=== PATIENT | female | born 1975 | race Two or more races ===

== ENCOUNTER 2024-05-31 10:04 | Emergency (ER) | payer MEDICAID, SELFPAY ==
[2024-05-31 10:32] VITALS: BP 139/79; PULSE 80; RESP 18; TEMP 37.1; O2SAT 98; BMI 28.9
--- NOTE | 2024-05-31 10:39 | XR_ITS ---
Examination: PA lateral chest 2 views TECHNIQUE: Upright PA lateral chest 2 views Exam date and time: May 31, 2024 1045 hours INDICATIONS: Chest pain coughing beginning 3 weeks ago. FINDINGS: Normal heart size. Lungs are clear. The osseous structures are intact IMPRESSION: No active disease
--- NOTE | 2024-05-31 11:42 | EDNOTE_ITS ---
ED Back Injury Pain RME/HPI General Chief Complaint: Back Pain/Injury Stated Complaint: WANTS LUNGS CHECKED Time Seen by Provider: 05/31/24 10:31 Source: patient Arrival date/time: 05/31/24 10:04 This is a 48-year-old female presents to the emergency department with complaints of cough, congestion, currently on azithromycin, allergy medications, currently treatment for bronchitis. She states she had a telephonic visit and was diagnosed with bronchitis. She reports she feels safer if she gets an x-ray and lung exam. Denies fever, chills shortness of breath. Mode of arrival: ambulatory Related Data Previous Rx's ?Medication ?Instructions ?Recorded omeprazole 20 mg capsule,delayed 20 mg PO QDAY #30 cap s 12/09/20 release famotidine 40 mg tablet (Pepcid) 40 mg PO Q6H #60 tabs 09/03/23 cetirizine 10 mg tablet 10 mg PO QDAY PRN allergy sy mptoms 05/31/24 #20 tabs Allergies Allergy/AdvReac Type Severity Reaction Status Date / Time No Known Allergies Allergy Verified 05/31/24 11:02 Review of Systems Review of Systems Systems Reviewed: All systems reviewed, normal except as documented Narrative Review of Systems: Gen: No fever, no chills, no weight loss EYES: No discharge, no visual changes, no pain HEENT: No ear pain, no congestion, no sore throat PULM: No shortness of breath, no cough, no congestion CV: No chest pain, no dyspnea on exertion, no palpitations GI: No nausea, no vomiting, no diarrhea, no pain, no constipation : No frequency, no urgency,? no dysuria Musc/skel: No joint pain, no back pain Skin: No rash? Psyc: No hallucinations, no depression Heme/Lymph: No easy bleeding or bruising tendencies Neuro: No weakness, no headache ED Exam Narrative Physical exam: General: Sittiing in Exam table in no acute distress, answering questions appropriately HENT: normocephalic, atraumatic, EOMI, PERRLA, moist mucous membranes Chest: chest wall is nontender Cardiac: regular rate and rhythm, normal S1 and S2, no murmurs, rubs, or gallops, capillary refill ?2 seconds Pulmonary: clear to auscultation bilaterally, no wheezing, crackles, or rhonchi Abdominal: active bowel sounds, soft, nontender, nondistended Neuro: A&OX3, CN II-XII intact, sensation grossly intact bilaterally in UE and LE. Skin: no rashes, no ecchymosis Ext: no lower extremity edema Course Quality Measures none Orders Category Date Time Status XR chest 2V Stat Exams 05/31/24 10:39 Completed Vital Signs Vital signs: Vital Signs Temperature 98.8 F 05/31/24 10:32 Pulse Rate 80 05/31/24 10:32 Respiratory Rate 18 05/31/24 10:32 Blood Pressure 139/79 H 05/31/24 10:32 Pulse Oximetry (%) 98 05/31/24 10:32 Back Pain / Injury Patient data External records reviewed:: [facility] previous records Clinical information provided by:: patient Social determinants that could affect healthcare access:: none Patient has the following chronic illnesses:: no How is presenting disease/condition affected by chronic disease/condition?: no chronic disease Evaluation data The following diagnostics were reviewed and interpreted by me:: radiology exam(s) Lab and/or radiology exams considered but not ordered:: no Interpretation Summary: Examination: PA lateral chest 2 views TECHNIQUE: Upright PA lateral chest 2 views Exam date and time: May 31, 2024 1045 hours INDICATIONS: Chest pain coughing beginning 3 weeks ago. FINDINGS: Normal heart size. Lungs are clear. The osseous structures are intact IMPRESSION: No active disease Medications / Prescriptions Medications or Prescriptions considered but not ordered:: no Medication administrations:: no Consultations Consultation(s) initiated? (list below): No Diagnosis Differential diagnosis back pain/injury: lumbar radiculopathy, sciatica and other (Bronchitis, pneumonia) Most likely diagnosis given after review of the tests above:: Bronchitis Admission Indicated Admission indicated?: not indicated Admission Request Was there a request for admission?: No Disposition Plan Disposition Plan: Discharge Discharge Attestation Discharge Attestation: The patient and all family members were given an opportunity to ask questions and understood the discharge instructions. Discharge instructions specifically effects, indications for sooner follow up or return to the emergency department, and the expected course of current diagnosis. Patient condition: Stable Discharge Plan Plan Patient Disposition: HOME (Self Care) Patient condition on transfer: Stable Prescriptions/Referrals Prescriptions/Med Rec: New cetirizine 10 mg tablet 10 mg PO QDAY PRN (Reason: allergy symptoms) Qty: 20 0RF No Action omeprazole 20 mg capsule,delayed release(DR/EC) 20 mg PO QDAY Qty: 30 0RF famotidine [Pepcid] 40 mg tablet 40 mg PO Q6H Qty: 60 0RF Rx Instructions: Take 30 minutes before a meal Referrals: Vitaly Parra, COMPUTER SOFTWARE ENGINEER [Primary Care Provider] - In 1 week Problem List Clinical Impression: Bronchitis Patient/Caregiver Discharge Instructions Discharge Activity: activity as tolerated Education Materials: ED Upper Resp Infec Abx Tx Additional Instructions: Please follow-up with your primary doctor continue take antibiotics as directed. Start an allergy tab that was sent to the pharmacy Return to the emergency department if any worsening symptoms change in condition.. Print Language: Com[place] Stand Alone Forms: Sylvia Award Info., Patient Portal Info Letter PA/[employer] Supervising Physician PA/[employer] Supervising Physician: Dr connors
== END 2024-05-31 15:01 | disposition home or self-care (01) ==
PROVIDERS: Emergency Provider Family Medicine; PCP Nurse Practitioner Family
DX: J40 Bronchitis, not specified as acute or chronic (principal)
CPT/HCPCS: 71046; 99283

== ENCOUNTER 2024-06-03 01:59 | Emergency (ER) | payer MEDICAID, SELFPAY ==
[2024-06-03 02:00] VITALS: BMI 30.2
[2024-06-03 02:05] VITALS: BP 112/79; PULSE 78; RESP 18; TEMP 36.8; O2SAT 98
[2024-06-03] MEDS: NAPROXEN 250 MG TABLET 500 MG PO (02:30)
[2024-06-03 02:40] LABS: Collection Type, Urine Clean Catch
[2024-06-03 02:59] LABS: Basophils % (Auto) 0 % (0-2.5); Eosinophils # (Auto) 0.1 Thou/mm3 (0.0-0.5); Eosinophils % (Auto) 1 % (0-10); Hematocrit 42.1 % (36.0-46.0); Hemoglobin 14.7 g/dL (12.0-16.0); Immature Granulocytes % (Auto) 0 % (0-0); Immature Granulocytes Auto 0.02 Thou/mm3 (0.00-0.00); Lymphocytes # (Auto) 2.6 Thou/mm3 (1.0-4.8); Lymphocytes % (Auto) 38 % (10-50); Mean Corpuscular HGB Conc 34.9 g/dl (31.0-37.0); Mean Corpuscular Hemoglobin 30.1 pg (25.0-35.0); Mean Corpuscular Volume 86 fL (80-100); Monocytes # (Auto) 0.6 Thou/mm3 (0.0-0.8); Monocytes % (Auto) 8 % (0-12); Neutrophils # (Auto) 3.7 Thou/mm3 (1.8-7.7); Neutrophils % (Auto) 52 % (37-80); Nucleated Red Blood Cell % 0 /100 WBC (0); Platelet Count 228 Thou/mm3 (140-440); RDW Standard Deviation 39.2 fL (36.4-46.3); Red Blood Count 4.89 Miln/mm3 (4.00-5.20)
[2024-06-03 03:08] LABS: Alanine Aminotransferase 35 U/L (10-49); Albumin/Globulin Ratio 1.1 (1.2-2.2); Alkaline Phosphatase 83 U/L (46-116); Anion Gap 6 (7-16); Aspartate Amino Transferase 32 U/L (0-34); BUN/Creatinine Ratio 17 Ratio (12-20); Bilirubin,Total 0.7 mg/dL (0.3-1.2); Blood Urea Nitrogen 17 mg/dL (9-23); Calcium 9.1 mg/dL (8.3-10.6); Calcium (Corrected) 9.1 mg/dL (8.5-10.1); Carbon Dioxide 24.1 mMol/L (20.0-31.0); Chloride 106 mMol/L (98-107); Estimated Creatinine Clearance 60.8 mL/min (>60); Globulin 3.5 gm/dL (2.3-3.5); Glucose 112 mg/dL (74-106); Lipase 44 U/L (12-53); Osmolality,Calculated 274 (275-295); Potassium 3.8 mMol/L (3.4-5.1); Sodium 136 mMol/L (136-145); Total Protein 7.5 gm/dL (5.7-8.2); eGFR > 60 See Note
[2024-06-03 03:09] LABS: Bilirubin,Urine Negative (Negative); Blood,Urine Trace (Negative); Clarity,Urine Clear (Clear/Hazy); Color,Urine Lt-Yellow (Lt Yel-Yel); Culture Indicated,Urine Not Indicated; Glucose, Urine Negative (Negative); HCG Qualitative,Urine Negative; Ketones,Urine Negative (Negative); Leukocyte Esterase,Urine Negative (Negative); Nitrite,Urine Negative (Negative); Protein,Urine Negative (Neg - Trace); RBC,Urine 5 /hpf (0-3); Specific Gravity,Urine 1.023 (1.001-1.035); Squamous Epithelial Cell,Urine 14 /hpf (0-5); Urobilinogen,Urine Negative mg/dL (0.0-1.0); WBC,Urine 1 /hpf (0-5)
--- NOTE | 2024-06-03 05:25 | PD.EDBACK ---
ED Back Injury Pain RME/HPI General Chief Complaint: Back Pain/Injury Stated Complaint: LOWER BACK PAIN Time Seen by Provider: 06/03/24 02:11 Arrival date/time: 06/03/24 01:59 48F with no significant PMH presents to ED with bilateral lower back/flank pain and dysuria. Limitations: no limitations Related Data Previous Rx's ?Medication ?Instructions ?Recorded omeprazole 20 mg capsule,delayed 20 mg PO QDAY #30 caps 12/09/20 release famotidine 40 mg tablet (Pepcid) 40 mg PO Q6H #60 tabs 09/03/23 cetirizine 10 mg tablet 10 mg PO QDAY PRN allergy symptoms 05/31/24 #20 tabs Allergies Allergy/AdvReac Type Severity Reaction Status Date / Time No Known Allergies Allergy Verified 06/03/24 02:03 Review of Systems Review of Systems Systems Reviewed: All systems reviewed, normal except as documented Constitutional Constitutional: Reports system reviewed and no additional complaints, except as documented, Denies fever(s) and Denies headache(s) ENT Ears, Nose, Mouth, and Throat: Denies disequilibrium and Denies headache(s) Cardiovascular Cardiovascular: Reports system reviewed and no additional complaints, except as documented, Denies chest pain and Denies dyspnea Respiratory Respiratory: Reports system reviewed and no additional complaints, except as documented, Denies cough and Denies dyspnea Gastrointestinal Gastrointestinal: Reports system reviewed and no additional complaints, except as documented, Denies abdominal pain, Denies nausea and Denies vomiting Genitourinary Genitourinary: Reports as per HPI, Reports dysuria and Reports flank pain Neurologic Neurologic: Reports system reviewed and no additional complaints, except as documented, Denies confusion, Denies disequilibrium and Denies headache(s) Psychiatric Psychiatric: Denies confusion Past Medical History Past Medical History CARDIAC: Positive Hypertension; Negative Congestive Heart Failure RESPIRATORY: Negative Chronic Obstructive Pulmonary Disease (COPD) GENITOURINARY: Negative Renal Disease ENDOCRINE: Negative Diabetes Mellitus Type 1 or Diabetes Mellitus Type 2 Social History SMOKING STATUS: Never smoker ED Exam General Limitations: Present no limitations General appearance: Present alert and in no apparent distress Head Head exam: Present atraumatic Eye Eye exam: Present normal appearance, PERRL and EOMI ENT ENT exam: Present normal exam, normal oropharynx and mucous membranes moist Neck Neck exam: Present normal inspection, full ROM and trachea midline Chest Chest inspection: Present normal inspection and symmetric chest wall rise Respiratory Respiratory exam: Present normal lung sounds bilaterally Cardiovascular Cardiovascular exam: Present regular rate, normal rhythm and normal heart sounds Abdominal Exam Abdominal exam: Present soft and normal bowel sounds Extremities Exam Extremities exam: Present normal inspection and full ROM Back Exam Back exam: Present normal inspection and full ROM Neurological Exam Neurological exam: Present alert, oriented X3 and CN II-XII intact Psychiatric Psychiatric exam: Present normal affect and normal mood Skin Skin exam: Present warm, dry, intact and normal color Course Quality Measures none Orders Category Date Time Status CBC Stat Lab 06/03/24 02:24 Completed CMP [Comprehensive Metabolic Panel] Stat Lab 06/03/24 02:24 Completed HCG Qualitative,Urine Stat Lab 06/03/24 02:30 Completed Lipase Stat Lab 06/03/24 02:24 Completed Urinalysis, C/S if Indicated Stat Lab 06/03/24 02:30 Completed Naproxen [Naprosyn] Med 06/03/24 02:12 Discontinued 500 mg PO X1 ONE Vital Signs Vital signs: Vital Signs Temperature 98.2 F 06/03/24 02:05 Pulse Rate 78 06/03/24 02:05 Respiratory Rate 18 06/03/24 02:05 Blood Pressure 112/79 06/03/24 02:05 Pulse Oximetry (%) 98 06/03/24 02:05 O2 at 98% on RA and WNLs Back Pain / Injury MDM Narrative MDM Narrative:: 48F with no significant PMH presents to ED with bilateral lower back/flank pain and dysuria. Physical exam reveals no CVA tenderness. Patient is afebrile, calm, and alert. No leukocytosis. CMP unremarkable. UA contaminated, but no WBCs. Minimal blood. Patient declined CT to r/o kidney stone since she felt better after meds and didn't want to wait for CT due to CT being broken and the queue is 6+ hours. She states she will return if worsening. Patient data External records reviewed:: [facility] previous records Clinical information provided by:: patient Social determinants that could affect healthcare access:: none Patient has the following chronic illnesses:: none How is presenting disease/condition affected by chronic disease/condition?: no chronic disease Evaluation data The following diagnostics were reviewed and interpreted by me:: lab results Lab and/or radiology exams considered but not ordered:: ordered Interpretation Summary: above Medications / Prescriptions Medications or Prescriptions considered but not ordered:: ordered Medication administrations:: Medication Administration History Discontinued Medications Naproxen (Naproxen 250 Mg Tablet) 500 mg PO X1 ONE Stop: 06/03/24 02:13 Last Admin: 06/03/24 02:30 Dose: 500 mg Documented By: MOOSE above Consultations Consultation(s) initiated? (list below): No Diagnosis Differential diagnosis back pain/injury: lumbar radiculopathy, sciatica, strain of lumbar region, renal colic, pyelonephritis, thoracic back pain, AAA, discitis and other (flank pain and dysuria) Most likely diagnosis given after review of the tests above:: flank pain and dysuria Admission Indicated Admission indicated?: not indicated Admission Request Was there a request for admission?: No Disposition Plan Disposition Plan: Discharge Discharge Attestation Discharge Attestation: The patient and all family members were given an opportunity to ask questions and understood the discharge instructions. Discharge instructions specifically effects, indications for sooner follow up or return to the emergency department, and the expected course of current diagnosis. Patient condition: Stable Discharge Plan Plan Patient Disposition: HOME (Self Care) Disposition Comment: Stable Prescriptions/Referrals Prescriptions/Med Rec: No Action omeprazole 20 mg capsule,delayed release(DR/EC) 20 mg PO QDAY Qty: 30 0RF famotidine [Pepcid] 40 mg tablet 40 mg PO Q6H Qty: 60 0RF Rx Instructions: Take 30 minutes before a meal cetirizine 10 mg tablet 10 mg PO QDAY PRN (Reason: allergy symptoms) Qty: 20 0RF Referrals: Fidel (PCP)Armando MD [Primary Care Provider] - In 1 week Problem List Clinical Impression: Dysuria, Flank pain Patient/Caregiver Discharge Instructions Education Materials: Dysuria, ED Flank Pain, Uncertain Cause Additional Instructions: Please follow-up with PCP within 24-48 hours and return immediately if symptoms worsen. Print Language: Citizen Of [place] Stand Alone Forms: Patient Portal Info Letter MARLENE/STEVE Supervising Physician MARLENE/STEVE Supervising Physician: Dr. Marrero
== END 2024-06-03 03:19 | disposition home or self-care (01) ==
PROVIDERS: Physician Assistant; Emergency Provider Emergency Medicine; PCP Family Medicine
DX: R30.0 Dysuria (principal); M54.50 Low back pain, unspecified
CPT/HCPCS: 36415; 80053; 81001; 81025; 83690; 85025; 99283; A9270

== ENCOUNTER 2024-07-11 00:40 | Emergency (ER) | payer MEDICAID, SELFPAY ==
[2024-07-11 00:41] VITALS: BMI 29.7
[2024-07-11 00:53] VITALS: BP 125/72; PULSE 64; RESP 16; TEMP 36.8; O2SAT 97
--- NOTE | 2024-07-11 00:55 | EDNOTE_ITS ---
ED Female Urogenital RME/HPI General Chief complaint: Abdominal Pain Stated complaint: PAINFUL URINATION Time Seen by Provider: 07/11/24 00:53 Arrival date/time: 07/11/24 00:40 48F with history of HTN presents to ED with 2 days of dysuria. Limitations: no limitations Related Data Previous Rx's ?Medication ?Instructions ?Recorded omeprazole 20 mg capsule,delayed 20 mg PO QDAY #30 cap s 12/09/20 release famotidine 40 mg tablet (Pepcid) 40 mg PO Q6H #60 tabs 09/03/23 cetirizine 10 mg tablet 10 mg PO QDAY PRN allergy sy mptoms 05/31/24 #20 tabs Allergies Allergy/AdvReac Type Severity Reaction Status Date / Time No Known Allergies Allergy Verified 07/11/24 00:44 Review of Systems Review of Systems Systems Reviewed: All systems reviewed, normal except as documented Constitutional Constitutional: Reports system reviewed and no additional complaints, except as documented, Denies fever(s) and Denies headache(s) ENT Ears, Nose, Mouth, and Throat: Denies disequilibrium and Denies headache(s) Cardiovascular Cardiovascular: Reports system reviewed and no additional complaints, except as documented, Denies chest pain and Denies dyspnea Respiratory Respiratory: Reports system reviewed and no additional complaints, except as documented, Denies cough and Denies dyspnea Gastrointestinal Gastrointestinal: Reports system reviewed and no additional complaints, except as documented, Denies abdominal pain, Denies nausea and Denies vomiting Genitourinary Genitourinary: Reports as per HPI and Reports dysuria Neurologic Neurologic: Reports system reviewed and no additional complaints, except as documented, Denies confusion, Denies disequilibrium and Denies headache(s) Psychiatric Psychiatric: Denies confusion Past Medical History Past Medical History CARDIAC: Positive Hypertension; Negative Congestive Heart Failure RESPIRATORY: Negative Chronic Obstructive Pulmonary Disease (COPD) GENITOURINARY: Negative Renal Disease ENDOCRINE: Negative Diabetes Mellitus Type 1 or Diabetes Mellitus Type 2 Social History SMOKING STATUS: Never smoker ED Exam General Limitations: Present no limitations General appearance: Present alert and in no apparent distress Head Head exam: Present atraumatic Eye Eye exam: Present normal appearance, PERRL and EOMI ENT ENT exam: Present normal exam, normal oropharynx and mucous membranes moist Neck Neck exam: Present normal inspection, full ROM and trachea midline Chest Chest inspection: Present normal inspection and symmetric chest wall rise Respiratory Respiratory exam: Present normal lung sounds bilaterally Cardiovascular Cardiovascular exam: Present regular rate, normal rhythm and normal heart sounds Abdominal Exam Abdominal exam: Present soft and normal bowel sounds Extremities Exam Extremities exam: Present normal inspection and full ROM Back Exam Back exam: Present normal inspection and full ROM Neurological Exam Neurological exam: Present alert, oriented X3 and CN II-XII intact Psychiatric Psychiatric exam: Present normal affect and normal mood Skin Skin exam: Present warm, dry, intact and normal color Course Quality Measures none Orders Category Date Time Status HCG Qualitative,Urine Stat Lab 07/11/24 01:02 Completed Urinalysis, C/S if Indicated Stat Lab 07/11/24 01:02 Completed Vital Signs Vital signs: Vital Signs Temperature 98.2 F 07/11/24 00:53 Pulse Rate 64 07/11/24 00:53 Respiratory Rate 16 07/11/24 00:53 Blood Pressure 125/72 07/11/24 00:53 Pulse Oximetry (%) 97 07/11/24 00:53 Oxygen Delivery Method Room Air 07/11/24 00:53 O2 at 97% on RA and WNLs Urogenital - Female MDM Narrative MDM Narrative:: 48F with history of HTN presents to ED with 2 days of dysuria. Physical exam reveals well-appearing female. Patient is afebrile, calm, and alert. UA clean. HCG neg. Freelance Patternmaker given. Patient data External records reviewed:: [facility] previous records Clinical information provided by:: patient Social determinants that could affect healthcare access:: none Patient has the following chronic illnesses:: HTN How is presenting disease/condition affected by chronic disease/condition?: uneffected by Evaluation data The following diagnostics were reviewed and interpreted by me:: lab results Lab and/or radiology exams considered but not ordered:: ordered Interpretation Summary: above Medications / Prescriptions Medications or Prescriptions considered but not ordered:: not ordered Medication administrations:: n/a Consultations Consultation(s) initiated? (list below): No Diagnosis Urogenital Female Differential Diagnosis: urinary tract infection, bacterial vaginosis, trichomoniasis, cervicitis, ovarian cyst, vaginitis, ruptured ovarian cyst, cyst of Bartholin's gland, cystitis, dysmenorrhea and other (dysuria) Most likely diagnosis given after review of the tests above:: dysuria Admission Indicated Admission indicated?: not indicated Admission Request Was there a request for admission?: No Disposition Plan Disposition Plan: Discharge Discharge Attestation Discharge Attestation: The patient and all family members were given an opportunity to ask questions and understood the discharge instructions. Discharge instructions specifically effects, indications for sooner follow up or return to the emergency department, and the expected course of current diagnosis. Patient condition: Stable Discharge Plan Plan Patient Disposition: HOME (Self Care) Discharge Disposition comment: Stable Prescriptions/Referrals Prescriptions/Med Rec: No Action omeprazole 20 mg capsule,delayed release(DR/EC) 20 mg PO QDAY Qty: 30 0RF famotidine [Pepcid] 40 mg tablet 40 mg PO Q6H Qty: 60 0RF Rx Instructions: Take 30 minutes before a meal cetirizine 10 mg tablet 10 mg PO QDAY PRN (Reason: allergy symptoms) Qty: 20 0RF Referrals: Fidel (PCP)Armando MD [Primary Care Provider] - In 1 week Problem List Clinical Impression: Dysuria Patient/Caregiver Discharge Instructions Education Materials: ED Dysuria, Uncertain Cause (Adult) Additional Instructions: Please follow-up with PCP within 24-48 hours and return immediately if symptoms worsen. If problem persists, follow-up with OBGYN and/or urologist. Print Language: Kinyarwanda Stand Alone Forms: Patient Portal Info Letter MARLENE/STEVE Supervising Physician MARLENE/STEVE Supervising Physician: Dr. Marrero
[2024-07-11 01:25] LABS: Collection Type, Urine Clean Catch
[2024-07-11 01:51] LABS: HCG Qualitative,Urine Negative
[2024-07-11 01:53] LABS: Bacteria,Urine Rare; Bilirubin,Urine Negative (Negative); Blood,Urine Negative (Negative); Clarity,Urine Clear (Clear/Hazy); Color,Urine Colorless (Lt Yel-Yel); Culture Indicated,Urine Not Indicated; Glucose, Urine Negative (Negative); Ketones,Urine Negative (Negative); Leukocyte Esterase,Urine Negative (Negative); Nitrite,Urine Negative (Negative); PH,Urine 6.5 (5.0-7.0); Protein,Urine Negative (Neg - Trace); RBC,Urine < 1 /hpf (0-3); Specific Gravity,Urine 1.006 (1.001-1.035); Squamous Epithelial Cell,Urine 3 /hpf (0-5); Urobilinogen,Urine Negative mg/dL (0.0-1.0); WBC,Urine < 1 /hpf (0-5)
== END 2024-07-11 02:20 | disposition home or self-care (01) ==
PROVIDERS: Physician Assistant; Emergency Provider Emergency Medicine; PCP Family Medicine
DX: R30.0 Dysuria (principal); I10 Essential (primary) hypertension
CPT/HCPCS: 81001; 81025; 99283

== ENCOUNTER 2024-08-19 02:22 | Emergency (ER) | payer MEDICAID, SELFPAY ==
[2024-08-19 02:23] VITALS: BMI 32.8
[2024-08-19 02:38] VITALS: BP 115/68; PULSE 62; RESP 16; TEMP 37; O2SAT 98
--- NOTE | 2024-08-19 03:50 | XR_ITS ---
Examination: PA lateral chest 2 views TECHNIQUE: Upright PA and lateral chest 2 views Date and time: August 19, 2024 0407 hours INDICATIONS: Coughing and chest pain beginning 3 weeks ago. FINDINGS: Normal heart size. Lungs are clear. The osseous structures are intact IMPRESSION: No active disease
--- NOTE | 2024-08-19 03:51 | PD.EDADULT ---
ED General RME/HPI General Chief complaint: Dental/Oral/Throat Stated complaint: THROAT PAIN X3 WEEKS Time Seen by Provider: 08/19/24 02:27 Arrival date/time: 08/19/24 02:22 RME / HPI RME / HPI narrative: 48-year-old female presents to the ED with a complaint of runny nose, nasal congestion, ear pain, sore throat and pain with swallowing, dry cough, body aches, and pain in her chest for the past 3 weeks. No others are ill at home with similar symptoms. She denies fever or chills, nausea or vomiting. She denies any reflux symptoms, sinus pressure or postnasal drip. Related Data Previous Rx's ?Medication ?Instructions ?Recorded omeprazole 20 mg capsule,delayed 20 mg PO QDAY #30 caps 12/09/20 release famotidine 40 mg tablet (Pepcid) 40 mg PO Q6H #60 tabs 09/03/23 cetirizine 10 mg tablet 10 mg PO QDAY PRN allergy symptoms 05/31/24 #20 tabs albuterol sulfate 90 mcg/actuation 2 puff inhalation Q4H PRN 08/19/24 aerosol inhaler shortness of breath or wheezing #8.5 grams azithromycin 250 mg tablet See Rx Instructions PO .COMPLEX #6 08/19/24 (Zithromax Z-Bismark) tabs benzonatate 200 mg capsule 200 mg PO TID PRN cough #15 caps 08/19/24 Allergies Allergy/AdvReac Type Severity Reaction Status Date / Time No Known Allergies Allergy Verified 07/11/24 00:44 Review of Systems Review of Systems Systems Reviewed: All systems reviewed, normal except as documented Past Medical History Past Medical History CARDIAC: Positive Hypertension; Negative Congestive Heart Failure RESPIRATORY: Negative Chronic Obstructive Pulmonary Disease (COPD) GENITOURINARY: Negative Renal Disease ENDOCRINE: Negative Diabetes Mellitus Type 1 or Diabetes Mellitus Type 2 Social History SMOKING STATUS: Never smoker ED Exam Narrative Physical exam: Alert and oriented 48-year-old female, afebrile, no acute distress. Vital signs blood pressure 115/68, pulse 62, respirations 16 and nonlabored, temp 98.6, O2 sat 98% on room air. Lungs are diminished at the bases, rhonchi noted. Cardiovascular regular rate and rhythm without murmurs. TMs without erythema. Nares are with erythema and edema. No maxillary sinus tenderness however she does have mild frontal tenderness. Pharynx is with mild erythema and no exudate. Abdomen is soft and nontender. Course Course Course Narrative: 2 view chest x-ray reveals increased bronchial markings per Dr Marrero. COVID, influenza A/B and rapid strep swabs are all negative. Quality Measures none Orders Category Date Time Status XR chest 2V Stat Exams 08/19/24 03:50 Taken COVID-19 Antigen (In-House) Stat Lab 08/19/24 03:57 Completed Influenza A & B Rapid Panel Stat Lab 08/19/24 03:57 Completed Strep A Rapid Stat Lab 08/19/24 03:57 Completed Vital Signs Vital signs: Vital Signs Temperature 98.6 F 08/19/24 02:38 Pulse Rate 62 08/19/24 02:38 Respiratory Rate 16 08/19/24 02:38 Blood Pressure 115/68 08/19/24 02:38 Pulse Oximetry (%) 98 08/19/24 02:38 Oxygen Delivery Method Room Air 08/19/24 02:38 Discharge Plan Plan Patient Disposition: HOME (Self Care) Discharge Disposition comment: Stable Prescriptions/Referrals Prescriptions/Med Rec: New azithromycin [Zithromax Z-Bismark] 250 mg tablet See Rx Instructions .ROUTE .COMPLEX Qty: 6 0RF Rx Instructions: For 250 mg dose pack: take 500 mg today (day 1), then 250 mg for 4 days (days 2-5) albuterol sulfate 90 mcg/actuation HFA aerosol inhaler 2 puff inhalation Q4H PRN (Reason: shortness of breath or wheezing) Qty: 8.5 0RF benzonatate 200 mg capsule 200 mg PO TID PRN (Reason: cough) Qty: 15 0RF No Action omeprazole 20 mg capsule,delayed release(DR/EC) 20 mg PO QDAY Qty: 30 0RF famotidine [Pepcid] 40 mg tablet 40 mg PO Q6H Qty: 60 0RF Rx Instructions: Take 30 minutes before a meal cetirizine 10 mg tablet 10 mg PO QDAY PRN (Reason: allergy symptoms) Qty: 20 0RF Referrals: Lucian Sanchez [Primary Care Provider] - In 1 week Problem List Clinical Impression: Lower respiratory tract infection Patient/Caregiver Discharge Instructions Additional Instructions: [place] los antibioticos pam lo prescrito y complete elcurso a pesar de que puede sentirse major. Shai un seguimiento con broussard medico de atencion primaria en 24 a 48 horas. Regresar al departamento de emergencias por cualquier sintoma nuevo o que empeore. Print Language: Kazakh Stand Alone Forms: Sylvia Award Info., Patient Portal Info Letter PA/STEVE Supervising Physician PA/COUNTER CHECKER Supervising Physician: Dr Marrero [facility] Narrative [facility] hospital course: 48-year-old female presents to the ED with a complaint of runny nose, nasal congestion, ear pain, sore throat and pain with swallowing, dry cough, body aches, and pain in her chest for the past 3 weeks. No others are ill at home with similar symptoms. She denies fever or chills, nausea or vomiting. She denies any reflux symptoms, sinus pressure or postnasal drip. Alert and oriented 48-year-old female, afebrile, no acute distress. Vital signs blood pressure 115/68, pulse 62, respirations 16 and nonlabored, temp 98.6, O2 sat 98% on room air. Lungs are diminished at the bases, rhonchi noted. Cardiovascular regular rate and rhythm without murmurs. TMs without erythema. Nares are with erythema and edema. No maxillary sinus tenderness however she does have mild frontal tenderness. Pharynx is with mild erythema and no exudate. Abdomen is soft and nontender. 2 view chest x-ray reveals increased bronchial markings per Dr Marrero. COVID, influenza A/B and rapid strep swabs are all negative. Clinical Information Provided by patient Medical Records Reviewed None Meds/Rx Considered, not Ordered None Labs/Rad/Tests considered, not Ordered None Chronic Illness/Social Conditions which may negatively complicate care or outcome(s)-explain: None or not applicable EKG EKG not done Lab Interpretation Labs: interpreted by wa Lab(s) interpretation(s): COVID, influenza A/B and rapid strep swabs are all negative. Imaging Imaging interpretation: see narrative above Provider imaging interpretation(s): 2 view chest x-ray reveals increased bronchial markings per Dr Marrero. Medication Administration(s) none Diagnosis Differential diagnosis: Pneumonia, COVID, influenza, strep pharyngitis, viral URI Differential dx and/or dx ruled out: Influenza, strep pharyngitis, COVID Most likely dx, and/or detailed dx discussion: Increased bronchial markings, lower respiratory tract infection Dispositon Disposition: Discharge Home
[2024-08-19 04:29] LABS: COVID-19 Antigen (In-House) Negative (Negative)
[2024-08-19 04:30] LABS: Influenza A Ag Negative; Influenza B Ag Negative; Strep A Rapid Negative (Negative)
== END 2024-08-19 06:55 | disposition home or self-care (01) ==
PROVIDERS: Physician Assistant; Emergency Provider Emergency Medicine; PCP Physician Assistant
DX: J22 Unspecified acute lower respiratory infection (principal)
CPT/HCPCS: 71046; 87502; 87651; 87811; 99283

== ENCOUNTER 2024-09-05 15:35 | Emergency (ER) | payer MEDICAID, SELFPAY ==
[2024-09-05 16:26] VITALS: BP 121/71; PULSE 66; RESP 18; TEMP 36.8; O2SAT 98
--- NOTE | 2024-09-05 16:35 | PD.EDANX ---
ED Anxiety RME/HPI General Chief Complaint: Dental/Oral/Throat Stated Complaint: Throat pain and can't breath X 2 hours Time Seen by Provider: 09/05/24 15:57 Source: patient Arrival date/time: 09/05/24 15:35 This is a 48-year-old female presented to the emergency department with complaints of toe pain after drinking cold water while working. She reports she has history of anxiety and acid reflux states has not been taking her acid reflux medication she drank water she felt a sensation in her throat and chest making her hyperventilate. This time she feels that her anxiety is under control because she stopped taking her medication for anxiety. During intake patient is more calm no current chest pain, throat pain. No other symptoms reported by patient. Related Data Previous Rx's ?Medication ?Instructions ?Recorded omeprazole 20 mg capsule,delayed 20 mg PO QDAY #30 caps 12/09/20 release famotidine 40 mg tablet (Pepcid) 40 mg PO Q6H #60 tabs 09/03/23 cetirizine 10 mg tablet 10 mg PO QDAY PRN allergy symptoms 05/31/24 #20 tabs albuterol sulfate 90 mcg/actuation 2 puff inhalation Q4H PRN 08/19/24 aerosol inhaler shortness of breath or wheezing #8.5 grams azithromycin 250 mg tablet See Rx Instructions PO .COMPLEX #6 08/19/24 (Zithromax Z-Bismark) tabs benzonatate 200 mg capsule 200 mg PO TID PRN cough #15 caps 08/19/24 Allergies Allergy/AdvReac Type Severity Reaction Status Date / Time No Known Allergies Allergy Verified 09/05/24 15:39 Review of Systems Review of Systems Systems Reviewed: All systems reviewed, normal except as documented Narrative Review of Systems: Gen: No fever, no chills, no weight loss EYES: No discharge, no visual changes, no pain HEENT: No ear pain, no congestion, no sore throat PULM: No shortness of breath, no cough, no congestion CV: No chest pain, no dyspnea on exertion, no palpitations GI: No nausea, no vomiting, no diarrhea, no pain, no constipation : No frequency, no urgency,? no dysuria Musc/skel: No joint pain, no back pain Skin: No rash? Psyc: No hallucinations, no depression Heme/Lymph: No easy bleeding or bruising tendencies Neuro: No weakness, no headache ED Exam Narrative Physical exam: General: Sittiing in Exam table in no acute distress, answering questions appropriately HENT: normocephalic, atraumatic, EOMI, PERRLA, moist mucous membranes Chest: chest wall is nontender Cardiac: regular rate and rhythm, normal S1 and S2, no murmurs, rubs, or gallops, capillary refill ?2 seconds Pulmonary: clear to auscultation bilaterally, no wheezing, crackles, or rhonchi Abdominal: active bowel sounds, soft, nontender, nondistended Neuro: A&OX3, CN II-XII intact, sensation grossly intact bilaterally in UE and LE. Skin: no rashes, no ecchymosis Ext: no lower extremity edema Course Quality Measures none Vital Signs Vital signs: Vital Signs Temperature 98.3 F 09/05/24 16:26 Pulse Rate 66 09/05/24 16:26 Respiratory Rate 18 09/05/24 16:26 Blood Pressure 121/71 09/05/24 16:26 Pulse Oximetry (%) 98 09/05/24 16:26 Oxygen Delivery Method Room Air 09/05/24 16:26 Anxiety Patient data External records reviewed:: [facility] previous records Clinical information provided by:: patient Social determinants that could affect healthcare access:: mental health Patient has the following chronic illnesses:: anxiety, gerd How is presenting disease/condition affected by chronic disease/condition?: exacerbated by Evaluation data The following diagnostics were reviewed and interpreted by me:: other (specify) Lab and/or radiology exams considered but not ordered:: no Interpretation Summary: no Medications / Prescriptions Medications or Prescriptions considered but not ordered:: no Medication administrations:: no Consultations Consultation(s) initiated? (list below): No Diagnosis Differential diagnosis anxiety: hyperventilation, panic disorder and acute anxiety Most likely diagnosis given after review of the tests above:: acute anciety Admission Indicated Admission indicated?: not indicated Admission Request Was there a request for admission?: No Disposition Plan Disposition Plan: Discharge Discharge Attestation Discharge Attestation: The patient and all family members were given an opportunity to ask questions and understood the discharge instructions. Discharge instructions specifically effects, indications for sooner follow up or return to the emergency department, and the expected course of current diagnosis. Patient condition: Stable Discharge Plan Plan Patient Disposition: HOME (Self Care) Patient condition on transfer: Stable Prescriptions/Referrals Prescriptions/Med Rec: No Action omeprazole 20 mg capsule,delayed release(DR/EC) 20 mg PO QDAY Qty: 30 0RF famotidine [Pepcid] 40 mg tablet 40 mg PO Q6H Qty: 60 0RF Rx Instructions: Take 30 minutes before a meal cetirizine 10 mg tablet 10 mg PO QDAY PRN (Reason: allergy symptoms) Qty: 20 0RF azithromycin [Zithromax Z-Bismark] 250 mg tablet See Rx Instructions .ROUTE .COMPLEX Qty: 6 0RF Rx Instructions: For 250 mg dose pack: take 500 mg today (day 1), then 250 mg for 4 days (days 2-5) albuterol sulfate 90 mcg/actuation HFA aerosol inhaler 2 puff inhalation Q4H PRN (Reason: shortness of breath or wheezing) Qty: 8.5 0RF benzonatate 200 mg capsule 200 mg PO TID PRN (Reason: cough) Qty: 15 0RF Problem List Clinical Impression: Anxiety about health, Acid reflux Patient/Caregiver Discharge Instructions Discharge Activity: activity as tolerated Education Materials: Medicines for Acid Reflux, ED Symptoms With Uncertain Cause Additional Instructions: Please make sure you take your medications as directed by your primary doctor. Follow-up with your primary doctor reTurn to the emergency department this any worsening symptoms any condition. Print Language: Nepali Stand Alone Forms: Sylvia Award Info., Patient Portal Info Letter PA/STEVE Supervising Physician PA/LIVE TRUCK TECHNICIAN Supervising Physician: Dr. Jerry
== END 2024-09-05 17:15 | disposition home or self-care (01) ==
LOC: SERX 17:01
PROVIDERS: Emergency Provider Emergency Medicine; PCP Physician Assistant
DX: F41.9 Anxiety disorder, unspecified (principal); K21.9 Gastro-esophageal reflux disease without esophagitis
CPT/HCPCS: 99283

== ENCOUNTER 2024-10-22 12:12 | Emergency (ER) | payer MEDICAID, SELFPAY ==
[2024-10-22 12:13] VITALS: BMI 32.2
[2024-10-22 12:47] VITALS: BP 120/78; PULSE 88; RESP 18; TEMP 37.9; O2SAT 99
--- NOTE | 2024-10-22 12:47 | XR_ITS ---
Examination: Abdomen sonogram, Limited Date and time of exam: October 22, 2024, 1327 hours. INDICATIONS: Right lower abdominal pain and diarrhea and vomiting beginning today. Technique: Real-time elena scale transabdominal sonographic images of the abdomen obtained. Findings: No sonographic visualization appendix IMPRESSION: No sonographic visualization appendix
--- NOTE | 2024-10-22 12:48 | PD.EDRME ---
Rapid Medical Screening Exam RME Arrival date/time: 10/22/24 12:12 49-year-old female with no known medical history presents to the emergency room with a chief complaint of right lower abdominal pain, nausea, vomiting, diarrhea x 1 day I have greeted and performed a focused initial assessment of this patient. A comprehensive ED assessment and evaluation of the patient, analysis of all test results, and completion of the medical decision making process will be conducted by additional ED providers. Chief Complaint: Abdominal Pain Vital signs reviewed by provider: Yes
[2024-10-22 14:08] LABS: Collection Type, Urine Clean Catch
[2024-10-22 14:14] LABS: Basophils # (Auto) 0.0 Thou/mm3 (0.0-0.2); Basophils % (Auto) 0 % (0-2.5); Eosinophils # (Auto) 0.0 Thou/mm3 (0.0-0.5); Eosinophils % (Auto) 0 % (0-10); Hematocrit 42.9 % (36.0-46.0); Hemoglobin 14.9 g/dL (12.0-16.0); Immature Granulocytes Auto 0.02 Thou/mm3 (0.00-0.00); Lymphocytes # (Auto) 0.5 Thou/mm3 (1.0-4.8); Lymphocytes % (Auto) 6 % (10-50); Mean Corpuscular HGB Conc 34.7 g/dl (31.0-37.0); Mean Corpuscular Hemoglobin 30.5 pg (25.0-35.0); Mean Corpuscular Volume 88 fL (80-100); Monocytes # (Auto) 0.3 Thou/mm3 (0.0-0.8); Monocytes % (Auto) 4 % (0-12); Neutrophils # (Auto) 7.4 Thou/mm3 (1.8-7.7); Neutrophils % (Auto) 89 % (37-80); Nucleated Red Blood Cell # 0.00 Thou/mm3 (0.00-0.00); Nucleated Red Blood Cell % 0 /100 WBC (0); Platelet Count 183 Thou/mm3 (140-440); RDW Standard Deviation 39.6 fL (36.4-46.3); Red Blood Count 4.89 Miln/mm3 (4.00-5.20); White Blood Count 8.3 Thou/mm3 (3.6-11.0)
[2024-10-22 14:21] LABS: HCG Qualitative,Urine Negative
[2024-10-22 14:28] LABS: Alanine Aminotransferase 34 U/L (10-49); Albumin, Serum 4.3 gm/dL (3.5-5.0); Albumin/Globulin Ratio 1.3 (1.2-2.2); Alkaline Phosphatase 79 U/L (46-116); Anion Gap 8 (7-16); Aspartate Amino Transferase 38 U/L (0-34); BUN/Creatinine Ratio 13 Ratio (12-20); Bilirubin,Total 0.7 mg/dL (0.3-1.2); Blood Urea Nitrogen 12 mg/dL (9-23); Calcium 9.9 mg/dL (8.3-10.6); Calcium (Corrected) 9.9 mg/dL (8.5-10.1); Carbon Dioxide 26.6 mMol/L (20.0-31.0); Chloride 104 mMol/L (98-107); Creatinine (Component) 0.9 mg/dL (0.6-1.3); Estimated Creatinine Clearance 69.1 mL/min (>60); Globulin 3.2 gm/dL (2.3-3.5); Glucose 110 mg/dL (74-106); Lipase 36 U/L (12-53); Osmolality,Calculated 278 (275-295); Potassium 3.9 mMol/L (3.4-5.1); Sodium 139 mMol/L (136-145); Total Protein 7.5 gm/dL (5.7-8.2); eGFR > 60 See Note
[2024-10-22 14:47] LABS: Bacteria,Urine 3+; Bilirubin,Urine Negative (Negative); Blood,Urine Trace (Negative); Color,Urine Lt-Yellow (Lt Yel-Yel); Glucose, Urine Negative (Negative); Ketones,Urine Negative (Negative); Leukocyte Esterase,Urine Positive (Negative); Nitrite,Urine Negative (Negative); PH,Urine 6.0 (5.0-7.0); Protein,Urine Negative (Neg - Trace); RBC,Urine 1 /hpf (0-3); Specific Gravity,Urine 1.022 (1.001-1.035); Squamous Epithelial Cell,Urine 9 /hpf (0-5); Urobilinogen,Urine Negative mg/dL (0.0-1.0); WBC,Urine 1 /hpf (0-5)
[2024-10-22 14:56] LABS: Clarity,Urine Hazy (Clear/Hazy)
--- NOTE | 2024-10-22 17:31 | PD.EDABDPN ---
ED Abdominal Pain RME/HPI General Chief Complaint: Abdominal Pain Stated complaint: RIGHT ABD PAIN WITH VOMITING, DIARRHEA X1 DAY Time seen by provider: 10/22/24 17:16 Arrival date/time: 10/22/24 12:12 Source: patient Limitations: no limitations RME / HPI RME / HPI narrative: 10/22/24 12:12 49-year-old female with no known medical history presents to the emergency room with a chief complaint of right lower abdominal pain, nausea, vomiting, diarrhea x 1 day. She has no dysuria or fever. She denies any chronic medical history. She has remote history of cholecystectomy. She has no other acute complaints or concerns. Related Data Previous Rx's ?Medication ?Instructions ?Recorded omeprazole 20 mg capsule,delayed 20 mg PO QDAY #30 caps 12/09/20 release famotidine 40 mg tablet (Pepcid) 40 mg PO Q6H #60 tabs 09/03/23 cetirizine 10 mg tablet 10 mg PO QDAY PRN allergy symptoms 05/31/24 #20 tabs albuterol sulfate 90 mcg/actuation 2 puff inhalation Q4H PRN 08/19/24 aerosol inhaler shortness of breath or wheezing #8.5 grams azithromycin 250 mg tablet See Rx Instructions PO .COMPLEX #6 08/19/24 (Zithromax Z-Bismark) tabs benzonatate 200 mg capsule 200 mg PO TID PRN cough #15 caps 08/19/24 dicyclomine 20 mg tablet 20 mg PO TID #20 tabs 10/22/24 Allergies Allergy/AdvReac Type Severity Reaction Status Date / Time No Known Allergies Allergy Verified 10/22/24 12:15 Review of Systems Review of Systems Systems Reviewed: All systems reviewed, normal except as documented ED Exam General Limitations: Present no limitations General appearance: Present alert and in no apparent distress Head Head exam: Present atraumatic Eye Eye exam: Present normal appearance, PERRL and EOMI ENT ENT exam: Present normal exam, normal oropharynx and mucous membranes moist Neck Neck exam: Present normal inspection, full ROM and trachea midline Chest Chest inspection: Present normal inspection and symmetric chest wall rise Respiratory Respiratory exam: Present normal lung sounds bilaterally Cardiovascular Cardiovascular exam: Present regular rate, normal rhythm and normal heart sounds Abdominal Exam Abdominal exam: Absent distention Extremities Exam Extremities exam: Present normal inspection and full ROM Back Exam Back exam: Present normal inspection and full ROM Neurological Exam Neurological exam: Present alert and oriented X3 Psychiatric Psychiatric exam: Present normal affect and normal mood Skin Skin exam: Present warm, dry, intact and normal color Course Quality Measures none Orders Category Date Time Status US abdomen limited Stat Exams 10/22/24 12:47 Completed CBC Stat Lab 10/22/24 13:40 Completed CMP [Comprehensive Metabolic Panel] Stat Lab 10/22/24 13:40 Completed HCG Qualitative,Urine Stat Lab 10/22/24 13:55 Completed Lipase Stat Lab 10/22/24 13:40 Completed UA [Urinalysis] Stat Lab 10/22/24 13:55 Completed Urine Culture Stat Lab 10/22/24 13:55 Received Vital Signs Vital signs: Vital Signs Temperature 100.2 F 10/22/24 12:47 Pulse Rate 88 10/22/24 12:47 Respiratory Rate 18 10/22/24 12:47 Blood Pressure 120/78 10/22/24 12:47 Pulse Oximetry (%) 99 10/22/24 12:47 Oxygen Delivery Method Room Air 10/22/24 12:47 Abdominal Pain MDM MDM Narrative MDM Narrative:: 10/22/24 12:12 49-year-old female with no known medical history presents to the emergency room with a chief complaint of right lower abdominal pain, nausea, vomiting, diarrhea x 1 day. She has no dysuria or fever. She denies any chronic medical history. She has remote history of cholecystectomy. She has no other acute complaints or concerns. Her exam is benign. Patient is nontoxic-appearing and her vital signs are stable. Workup reveals no leukocytosis or metabolic derangement. Urinalysis is benign. I will abdominal ultrasound reveals no acute intra-abdominal pathology. I do believe the patient can be discharged emergency room. Should be discharged with a prescription of Bentyl. She is asked to follow-up with her primary doctor this week for recheck. Return here as needed for any worsening or emergent changes. Patient data External records reviewed:: None Clinical information provided by:: patient Social determinants that could affect healthcare access:: none Patient has the following chronic illnesses:: n/a How is presenting disease/condition affected by chronic disease/condition?: no chronic disease Evaluation data The following diagnostics were reviewed and interpreted by me:: lab results and radiology exam(s) Lab and/or radiology exams considered but not ordered:: n/a Interpretation Summary: Unremarkable workup Medications / Prescriptions Medications or Prescriptions considered but not ordered:: n/a Medication administrations:: n/a Consultations Consultation(s) initiated? (list below): No Diagnosis Differential diagnosis abdominal pain: abdominal pain Most likely diagnosis given after review of the tests above:: n/a Admission Indicated Admission indicated?: not indicated Admission Request Was there a request for admission?: No Disposition Plan Disposition Plan: Discharge Discharge Attestation Discharge Attestation: The patient and all family members were given an opportunity to ask questions and understood the discharge instructions. Discharge instructions specifically effects, indications for sooner follow up or return to the emergency department, and the expected course of current diagnosis. Patient condition: Stable Discharge Plan Plan Patient Disposition: HOME (Self Care) Patient condition on transfer: Stable Prescriptions/Referrals Prescriptions/Med Rec: New dicyclomine 20 mg tablet 20 mg PO TID Qty: 20 0RF No Action omeprazole 20 mg capsule,delayed release(DR/EC) 20 mg PO QDAY Qty: 30 0RF famotidine [Pepcid] 40 mg tablet 40 mg PO Q6H Qty: 60 0RF Rx Instructions: Take 30 minutes before a meal cetirizine 10 mg tablet 10 mg PO QDAY PRN (Reason: allergy symptoms) Qty: 20 0RF azithromycin [Zithromax Z-Bismark] 250 mg tablet See Rx Instructions .ROUTE .COMPLEX Qty: 6 0RF Rx Instructions: For 250 mg dose pack: take 500 mg today (day 1), then 250 mg for 4 days (days 2-5) albuterol sulfate 90 mcg/actuation HFA aerosol inhaler 2 puff inhalation Q4H PRN (Reason: shortness of breath or wheezing) Qty: 8.5 0RF benzonatate 200 mg capsule 200 mg PO TID PRN (Reason: cough) Qty: 15 0RF Referrals: No Primary/Family,Physician [Primary Care Provider] - In 1 week Problem List Clinical Impression: Gastroenteritis Patient/Caregiver Discharge Instructions Education Materials: ED Gastroenteritis, Viral (Adult) Additional Instructions: - Maintain oral hydration. - Use the provided medication for symptomatic relief. - Contact your clinic to schedule a follow-up appoint with your primary doctor. - Return to the emergency room anytime for any worsening or emergent changes. Print Language: Zambian Stand Alone Forms: Sylvia Award Info., Work/School Release, Patient Portal Info Letter
[2024-10-22 18:09] VITALS: BP 120/78; PULSE 94; RESP 18; TEMP 37.2; O2SAT 97
== END 2024-10-22 18:10 | disposition home or self-care (01) ==
PROVIDERS: Nurse Practitioner Family; Emergency Provider Emergency Medicine
DX: K52.9 Noninfective gastroenteritis and colitis, unspecified (principal)
CPT/HCPCS: 36415; 76705; 80053; 81001; 81025; 83690; 85025; 87086; 99283